=== PATIENT | female | born 2000 | race Caucasian/White ===

== ENCOUNTER → 2022-03-30 | Outpatient (CLI) | payer OTHER, SELFPAY ==
[2022-04-01 21:07] LABS: Chlamydia By Nucleic Acid AMP Negative (Negative)
[2022-04-03 09:32] LABS: Gonococcus By Nucleic Acid AMP Negative (Negative)
[2022-04-06 18:27] LABS: HPV Reflexed? NOT INDICATED
== END | disposition home or self-care (01) ==
LOC: LABSPEC 16:12
PROVIDERS: Referring Provider Nurse Practitioner Women's Health; Visit Provider Nurse Practitioner Women's Health
DX: N94.6 Dysmenorrhea, unspecified (principal); Z12.4 Encounter for screening for malignant neoplasm of cervix
CPT/HCPCS: 87491; 87591; 88175; G0145

== ENCOUNTER → 2022-11-30 | Outpatient (CLI) | payer OTHER, SELFPAY ==
[2022-12-02 06:08] LABS: Chlamydia By Nucleic Acid AMP Negative (Negative); Gonococcus By Nucleic Acid AMP Negative (Negative)
== END | disposition home or self-care (01) ==
LOC: LABSPEC 11:37
PROVIDERS: Referring Provider Obstetrics & Gynecology; Visit Provider Obstetrics & Gynecology
DX: Z34.90 Encounter for supervision of normal pregnancy, unspecified, unspecified trimester (principal)
CPT/HCPCS: 87086; 87088; 87491; 87591

== ENCOUNTER → 2022-12-14 | Outpatient (CLI) | payer OTHER, SELFPAY ==
[2022-12-14 13:03] LABS: Absolute Lymphocyte Count 2.36 X10^3/uL (0.83-4.51); Absolute Neutrophil Count 6.3 X10^3/uL (2.0-7.7); Basophil# 0.05 X10^3/uL; Basophil% 0.5 % (0-1); Eosinophil# 0.07 X10^3/uL; Eosinophils% 0.7 % (0-5); Hematocrit 38.2 % (37-47); Hemoglobin 13.2 g/dL (12.0-15.0); Lymphocyte # 2.36 X10^3/ul (0.83-4.51); Lymphocyte % 24.8 % (19-41); Mean Corp Hgb Conc 34.6 g/dL (32-36); Mean Corpuscular Hgb 28.8 pg (27.0-32.0); Mean Corpuscular Volume 83.4 fL (81-99); Mean Platelet Vol. 9.2 fl (6.2-12.0); Monocyte# 0.67 X10^3/uL; NRBC Flagged by Analyzer 0 % (0-5); Neutrophil # 6.34 X10^3/uL (2.7-7.7); Neutrophil % 66.6 % (47-70); Platelet Count 315 K/mm3 (150-450); RBC Distribution Width CV 12.1 % (11.6-14.6); Red Blood Count 4.58 M/mm3 (4.2-5.4); White Blood Count 9.5 K/mm3 (4.4-11.0)
[2022-12-14 13:33] LABS: NATERA MAILED SPECIMEN
[2022-12-14 14:32] LABS: HIV - WCH Non-Reactive (Nonreactive); Hepatitis B Surface Antigen Non-Reactive (Nonreactive); Hepatitis C Antibody Non-Reactive (Nonreactive); Rubella IgG Reactive (Nonreactive); Syphilis Antibodies Non-reactive
== END | disposition home or self-care (01) ==
LOC: LAB 12:27
PROVIDERS: Referring Provider Obstetrics & Gynecology; Visit Provider Obstetrics & Gynecology
DX: Z34.81 Encounter for supervision of other normal pregnancy, first trimester (principal); Z31.430 Encounter of female for testing for genetic disease carrier status for procreative management
CPT/HCPCS: 36415; 85025; 86703; 86762; 86780; 86803; 86850; 86900; 86901; 87340

== ENCOUNTER → 2023-04-06 | Outpatient (CLI) | payer OTHER, SELFPAY ==
[2023-04-06 09:14] LABS: Absolute Lymphocyte Count 1.92 X10^3/uL (0.83-4.51); Absolute Neutrophil Count 7.2 X10^3/uL (2.0-7.7); Basophil# 0.04 X10^3/uL; Basophil% 0.4 % (0-1); Eosinophil# 0.12 X10^3/uL; Eosinophils% 1.2 % (0-5); Hematocrit 33.5 % (37-47); Hemoglobin 10.9 g/dL (12.0-15.0); Lymphocyte # 1.92 X10^3/ul (0.83-4.51); Lymphocyte % 19.1 % (19-41); Mean Corp Hgb Conc 32.5 g/dL (32-36); Mean Corpuscular Hgb 29.3 pg (27.0-32.0); Mean Corpuscular Volume 90.1 fL (81-99); Mean Platelet Vol. 9.7 fl (6.2-12.0); Monocyte# 0.67 X10^3/uL; Monocyte% 6.7 % (0-10); NRBC Flagged by Analyzer 0 % (0-5); Neutrophil # 7.18 X10^3/uL (2.7-7.7); Neutrophil % 71.6 % (47-70); Platelet Count 259 K/mm3 (150-450); RBC Distribution Width CV 12.4 % (11.6-14.6); RBC Distribution Width SD 40.7 fl (35.1-43.9); Red Blood Count 3.72 M/mm3 (4.2-5.4)
[2023-04-06 09:23] LABS: Glucose Challenge Gest 1H 50g 126 mg/dL (70-140)
[2023-04-06 09:57] LABS: HIV - WCH Non-Reactive (Nonreactive); Syphilis Antibodies Non-reactive
== END | disposition home or self-care (01) ==
PROVIDERS: Referring Provider Nurse Practitioner Women's Health; Visit Provider Nurse Practitioner Women's Health
DX: Z34.90 Encounter for supervision of normal pregnancy, unspecified, unspecified trimester (principal)
CPT/HCPCS: 36415; 82950; 85025; 86703; 86780

== ENCOUNTER → 2023-05-02 | Outpatient (CLI) | payer OTHER, SELFPAY ==
[2023-05-02 13:06] LABS: Absolute Lymphocyte Count 2.21 X10^3/uL (0.83-4.51); Absolute Neutrophil Count 9.2 X10^3/uL (2.0-7.7); Basophil# 0.04 X10^3/uL; Basophil% 0.3 % (0-1); Eosinophil# 0.06 X10^3/uL; Eosinophils% 0.5 % (0-5); Hematocrit 34.8 % (37-47); Hemoglobin 11.5 g/dL (12.0-15.0); Lymphocyte # 2.21 X10^3/ul (0.83-4.51); Mean Corpuscular Hgb 29.5 pg (27.0-32.0); Mean Corpuscular Volume 89.2 fL (81-99); Mean Platelet Vol. 10.1 fl (6.2-12.0); Monocyte% 5.7 % (0-10); NRBC Flagged by Analyzer 0 % (0-5); Neutrophil # 9.16 X10^3/uL (2.7-7.7); Neutrophil % 74.4 % (47-70); Platelet Count 241 K/mm3 (150-450); RBC Distribution Width CV 12.5 % (11.6-14.6); RBC Distribution Width SD 40.3 fl (35.1-43.9); White Blood Count 12.3 K/mm3 (4.4-11.0)
== END | disposition home or self-care (01) ==
LOC: LAB 12:30
PROVIDERS: Referring Provider Nurse Practitioner Women's Health; Visit Provider Nurse Practitioner Women's Health
DX: O99.012 Anemia complicating pregnancy, second trimester (principal); Z3A.00 Weeks of gestation of pregnancy not specified
CPT/HCPCS: 36415; 85025

== ENCOUNTER → 2023-06-08 | Outpatient (CLI) | payer OTHER, SELFPAY ==
--- OUTSIDE RECORDS SUMMARY | 2023-06-08 15:47 | XMS RPT_ITS | CCD ---
Author Name Unknown Address [address] [place] [address] Organization [facility] Care Team Providers Care Checking Department Supervisor Name Role Phone NO PRIMARY CARE, Primary Care Unavailable SAMANTHA PAULINO Attending Unavailable DENICE QUICK Referring Unavailcésar quijano NO PRIMARY CAREMD Primary Care Unavailable SAMANTHA PAULINO Attending Unavailable MATT BOONE Referring Unavailab le Encounters Encounter Date Encounter Type Care Provider Facility Start: 02-23-2023 End: 02-23-2023 ambulatory NO PRIMARY CARE [facility] Start: 02-07-2023 End: 02-07-2023 ambulatory NO PRIMARY CARE [facility] Payers Date Payer Category Payer Unknown [id number] [id number]. [id number] 1998 Unknown [id number] [id number]. [id number] Private Health Insurance [id number] Summary Purpose Family History No Family History Records Found Advance Directives No Advanced Directives Records Found Additional Source Comments INFORMATION SOURCE (unrecogn ized section and content) FOR RECORDS PERTAINING TO PATIENTS WHO ARE OR HAVE BEEN ENROLLED IN A CHEMICAL DEPENDENCY/SUBSTANCEABUSE PROGRAM, SOME INFORMATION MAY BE OMITTED. This clinical summary was aggregated from multiple sources. Caution should be exercised in using it in the provision of clinical care. This summary normalizes information from multiple sources, and as a consequence, information in this document may materially change the coding, format and clinical context of patient data. In addition, data may be omitted in some cases. CLINICAL DECISIONS SHOULD BE BASED ON THE PRIMARY CLINICAL RECORDS. [email or web address] provides no warranty or guarantee of the accuracy or completeness of information in this document.
== END | disposition home or self-care (01) ==
LOC: LABSPEC 15:32
PROVIDERS: Referring Provider Obstetrics & Gynecology; Visit Provider Obstetrics & Gynecology
DX: Z34.90 Encounter for supervision of normal pregnancy, unspecified, unspecified trimester (principal)
CPT/HCPCS: 87081

== ENCOUNTER 2023-06-28 12:00 | Outpatient (CLI) | payer OTHER, SELFPAY ==
[2023-06-28 12:20] VITALS: BP 114/74; PULSE 109; TEMP 37.3; O2SAT 98
[2023-06-28 12:21] VITALS: TEMP 37.3; O2SAT 99
--- OUTSIDE RECORDS SUMMARY | 2023-06-28 12:23 | XMS RPT_ITS | CCD ---
Author Name Unknown Address [address] [place] [address] Organization [facility] Care Team Providers Care Transportation Director Name Role Phone NO PRIMARY CARE, Primary Care Unavailable SAMANTHA PAULINO Attending Unavailable DENICE QUICK Referring Unavailcésar quijano NO PRIMARY CAREMD Primary Care Unavailable SAMANTHA PAULINO Attending Unavailable MATT BOONE Referring Unavailab le Encounters Encounter Date Encounter Type Care Provider Facility Start: 02-23-2023 End: 02-23-2023 ambulatory NO PRIMARY CARE [facility] Start: 02-07-2023 End: 02-07-2023 ambulatory NO PRIMARY CARE [facility] Payers Date Payer Category Payer Unknown [id number] [id number]. [id number] 1998 Unknown [id number] [id number]. [id number] Private Health Insurance [id number] Summary Purpose Family History No Family History [...] BE BASED ON THE PRIMARY CLINICAL RECORDS. [employer] provides no warranty or guarantee of the accuracy or completeness of information in this document.
[2023-06-28 12:50] LABS: ROM Internal Control Test YES-OK TO RESULT pt. (Internal QC); ROM Patient Test Negative (Negative)
[2023-06-28 13:28] VITALS: BMI 29.2
--- NOTE | 2023-06-28 18:29 | OB.TRI.HP_ITS ---
HPI - General General Date of Admission: 06/28/23 HPI Narrative ALBERTO WANG, is a 22 y/o @ 39 weeks 3 days who presents to L&D to rule out rupture of membranes. Maternal Data Information DAMIEN Calculator Estimated Delivery Date Method Current WG Current Estimate 07/03/23 LMP (Certain) 40w 2d Other Estimates 06/29/23 Ultrasound #1 40w 6d PFSH PFSH Medical History Genetic testing of female Home Medications docosahexaenoic acid 200 mg capsule ( DHA) mg PO 11/30/22 [History Last Taken Unknown] Allergy/AdvReac Type Severity Reaction Status Date / Time No Known Allergies Allergy Verified 07/05/23 10:57 Family History Sister Thyroid disorder Social History number of children: 0 current occupational status: employed current occupation: [employer] leisure activities: reading and volunteer work Smoking Status: Never smoker alcohol intake: current alcohol intake frequency: holidays/special occasions only substance use type: does not use what type of physical activity do you participate in: other details: At home workouts frequency: 3-4 times per week seatbelt use: always do you feel safe at home: Yes additional social history: - Debby landis History 1 Elective abortions Hx Para Spontaneous abortions Hx # Term Pregnancies Ectopic pregnancies Hx # Pregnancies Multiple births # of living children Visit Details Expected Delivery Route/Plan Labor Preferences- CB/BF classes: completed labor support person: Ari labor intervention preferences: hydrotherapy pain management options preferred: unmedicated, open to epidural if needed medically cut cord/dad catch: cord : wants PP control planned: discussed discussed possible routes of delivery and associated risks: discussed possible delivery modalities and possible indications for each including R/B/A of , VAVD, and CS. questions answered. special requests: none Plans Covid status: unvaxed Flu vaccine: declines Tdap vaccine: given Rhogam: NA LARC form signed: yes movement and labor precautions reviewed. Problem list reviewed and updated with the most current plan of care details and appropriate orders placed. Relevant counseling for the gestational age provided. Continue routine care and follow up unless otherwise noted in visit notes/problem list details OB Flowsheet Initial Weight: Not Recorded Date -?-?-?-?-?-?-?-?-?-?-?-?- EGA Weight BP Urine Prot -?-?-?-?-?-?-?-?-?-?-?-?- Glucose FHR FuHt Pres Dilation -?-?-?-?-?-?-?-?-?-?-?-?- Effaced St Visit Note 11/30/22 -?-?-?-?-?-?-?-?-?-?-?-?- 9w 2d 153 lb 2 oz 124/79 -?-?-?-?-?-?-?-?-?-?-?-?- 189 -?-?-?-?-?-?-?-?-?-?-?-?- JV- CRL consiste nt with lmp. undecided about nipt and did not do a new ob. 12/27/22 -?-?-?-?-?-?-?-?-?-?-?-?- 13w 1d 151 lb 4 oz 109/79 -?-?-?-?-?-?-?-?-?-?-?-?- 155 -?-?-?-?-?-?-?-?-?-?-?-?- KW-no vb/petey g. Discussed AFP, and carrier screening. US ordered. 01/24/23 -?-?-?-?-?-?-?-?-?-?-?-?- 17w 1d 154 lb 2 oz 126/77 Nega tive -?-?-?-?-?-?-?-?-?-?-?-?- Negative 150 -?-?-?-?-?-?-?-?-?-?-?-?- KW- no vb/crampi ng. CBE classes discussed. US on 02/07. 02/20/23 -?-?-?-?-?-?-?-?-?-?-?-?- 21w 0d 156 lb 8 oz 105/67 Nega tive -?-?-?-?-?-?-?-?-?-?-?-?- Negative 150 21 -?-?-?-?-?-?-?-?-?-?-?-?- KW-no vb/crampin g. good fm. KW-no vb/cramping. good fm. Has US for additional anatomy views on thurs. no concerns 03/23/23 -?-?-?-?-?-?-?-?-?-?-?-?- 25w 3d 162 lb 4 oz 110/70 Nega tive -?-?-?-?-?-?-?-?-?-?-?-?- Negative 145 25 -?-?-?-?-?-?-?-?-?-?-?-?- MH-NO VB, LOF. G ood FM. Declines flu vax. Larc done. 04/06/23 -?-?-?-?-?-?-?-?-?-?-?-?- 27w 3d 168 lb 2 oz 107/71 -?-?-?-?-?-?-?-?-?-?-?-?- 141 27 -?-?-?-?-?-?-?-?-?-?-?-?- MH-No VB, LOF. G ood FM. 28 wk labs:normal glucose. Anemia and will add FE 04/21/23 -?-?-?-?-?-?-?-?-?-?-?-?- 29w 4d 169 lb 99/63 Negative -?-?-?-?-?-?-?-?-?-?-?-?- Negative 150 29 -?-?-?-?-?-?-?-?-?-?-?-?- KW- no vb/lof/ct x. CBC ordered for next visit. Tdap today. 05/02/23 -?-?-?-?-?-?-?-?-?-?-?-?- 31w 1d 170 lb 2 oz 110/72 Nega tive -?-?-?-?-?-?-?-?-?-?-?-?- Negative 130 31 -?-?-?-?-?-?-?-?-?-?-?-?- KW-no vb/lof/ctx . good fm. CB class last sat. CBC today. continue on iron. 05/19/23 -?-?-?-?-?-?-?--?-?-?-?-?- 33w 4d 171 lb 4 oz 102/68 Nega tive -?-?-?-?-?-?-?-?-?-?-?-?- Negative 130 33 -?-?-?-?-?-?-?-?-?-?-?-?- KW- no vb/lof/ct x. good fm. no concerns today. 06/01/23 -?-?-?-?-?-?-?-?-?-?-?-?- 35w 3d 175 lb 4 oz 109/70 Nega tive -?-?-?-?-?-?-?-?-?-?-?-?- Negative 135 35 -?-?-?-?-?-?-?-?-?-?-?-?- JV- no lof, vagi nal bleeding, or dec fm. 06/08/23 -?-?-?-?-?-?-?-?-?-?-?-?- 36w 3d 178 lb 6 oz 98/69 Nega tive -?-?-?-?-?-?-?-?-?--?-?-?- Negative 135 36 Cephalic 0 -?-?-?-?-?-?-?-?-?-?-?-?- SM- no vb lof go od fm no regular ctx gbs collected, discussed delivery preferences 06/16/23 -?-?-?-?-?-?-?-?-?-?-?-?- 37w 4d 182 lb 98/70 Negative -?-?-?-?-?-?-?-?-?-?-?-?- Negative 138 37 Cephalic -?-?-?-?-?-?-?-?-?-?-?-?- LC- no vb/ctx/lo f. good fm. no concerns.gbs neg. declines VE today. 06/22/23 -?-?-?-?-?-?-?-?-?-?-?-?- 38w 3d 184 lb 2 oz 122/79 -?-?-?-?-?-?-?-?-?-?-?-?- 125 39 Cephalic 1 -?-?-?-?-?-?-?-?-?-?-?-?- SM- no vb lof go od fm no regular ctx 06/30/23 -?-?-?-?-?-?-?-?-?-?-?-?- 39w 4d 184 lb 4 oz 128/88 Nega tive -?-?-?-?-?-?-?-?-?-?-?-?- Negative 129 39 Cephalic -?-?-?-?-?-?-?-?-?-?-?-?- JV- no further l of, vaginal bleeding, or dec fm,. plan for 41 week IOL. (monday the at 7am) plan for mendez + pit 07/05/23 -?-?-?-?-?-?-?-?-?-?-?-?- 40w 2d 184 lb 114/75 Negative -?-?-?-?-?-?-?-?-?-?-?-?- Negative 137 39 Cephalic 1 .5 -?-?-?-?-?-?-?-?-?-?-?-?- 40 -3 LC- no vb/ lof/ctx. good fm. has IOL set up. membranes swept today. ROS Constitutional Constitutional: Reports systems reviewed and no addt'l complaints, except as documented Gastrointestinal Gastrointestinal: Denies bloating, constipation, cramping, diarrhea, nausea or vomiting Genitourinary Genitourinary: Reports other Details: Denies vaginal odor, vaginal bleeding, or vaginal discharge ; Denies difficulty urinating or flank pain Physical Exam HEENT normocephalic Resp normal respiratory effort and normal air movement no CVA tenderness Extremity normal to inspection General Extremity: edema bilateral (trace ) NST FHR Rate Baby A Baseline: 120 Variability:: Moderate Accelerations:: 15 x 15 Decelerations:: None NST Reactive:: Yes FHR Category:: Category I Uterine Activity:: no contractions Assessment & Plan (1) Anemia in preg-unspec: QUALIFIERS: Trimester: second trimester Qualified Code(s): O99.012 - Anemia complicating , second trimester COMMENT: add FE: improved (2) Genetic testing of female: 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 keep next scheduled appt. Charges/Coding Multi Select Codes Visit Charges Office Visit/Consults: 24005 OV L3 Est 20min Urinary/Genital Urinary/Genital CPT Codes: 24253-22 non-stress test Interp
--- NOTE | 2023-06-28 18:29 | OB.TRI.NOTE ---
HPI - General General Date of Admission: 06/28/23 HPI Narrative ALBERTO WANG, is a 22 y/o @ 39 weeks 3 days who presents to L&D to rule out rupture of membranes. Maternal Data Information DAMIEN Calculator Estimated Delivery Date Method Current WG Current Estimate 07/03/23 LMP (Certain) 40w 2d Other Estimates 06/29/23 Ultrasound #1 40w 6d PFSH PFSH Medical History Genetic testing of female Home Medications docosahexaenoic acid 200 mg capsule ( DHA) mg PO 11/30/22 [History Last Taken Unknown] Allergy/AdvReac Type Severity Reaction Status Date / Time No Known Allergies Allergy Verified 07/05/23 10:57 Family History Sister Thyroid disorder Social History number of children: 0 current occupational status: employed current occupation: [employer] leisure activities: reading and volunteer work Smoking Status: Never smoker alcohol intake: current alcohol intake frequency: holidays/special occasions only substance use type: does not use what type of physical activity do you participate in: other details: At home workouts frequency: 3-4 times per week seatbelt use: always do you feel safe at home: Yes additional social history: - Debby landis History 1 Elective abortions Hx Para Spontaneous abortions Hx # Term Pregnancies Ectopic pregnancies Hx # Pregnancies Multiple births # of living children Visit Details Expected Delivery Route/Plan Labor Preferences- CB/BF classes: completed labor support person: Ari labor intervention preferences: hydrotherapy pain management options preferred: unmedicated, open to epidural if needed medically cut cord/dad catch: cord : wants PP control planned: discussed discussed possible routes of delivery and associated risks: discussed possible delivery modalities and possible indications for each including R/B/A of , VAVD, and CS. questions answered. special requests: none Plans Covid status: unvaxed Flu vaccine: declines Tdap vaccine: given Rhogam: NA LARC form signed: yes movement and labor precautions reviewed. Problem list reviewed and updated with the most current plan of care details and appropriate orders placed. Relevant counseling for the gestational age provided. Continue routine care and follow up unless otherwise noted in visit notes/problem list details OB Flowsheet Initial Weight: Not Recorded Date <del>?</del> EGA Weight BP Urine Prot <del>?</del> Glucose FHR FuHt Pres Dilation <del>?</del> Effaced St Visit Note 11/30/22 <del>?</del> 9w 2d 153 lb 2 oz 124/79 <del>?</del> 189 <del>?</del> JV- CRL consistent with lmp. undecided about nipt and did not do a new ob. 12/27/22 <del>?</del> 13w 1d 151 lb 4 oz 109/79 <del>?</del> 155 <del>?</del> KW-no vb/cramping. Discussed AFP, and carrier screening. US ordered. 01/24/23 <del>?</del> 17w 1d 154 lb 2 oz 126/77 Negative <del>?</del> Negative 150 <del>?</del> KW- no vb/cramping. CBE classes discussed. US on 02/07. 02/20/23 <del>?</del> 21w 0d 156 lb 8 oz 105/67 Negative <del>?</del> Negative 150 21 <del>?</del> KW-no vb/cramping. good fm. KW-no vb/cramping. good fm. Has US for additional anatomy views on thurs. no concerns 03/23/23 <del>?</del> 25w 3d 162 lb 4 oz 110/70 Negative <del>?</del> Negative 145 25 <del>?</del> MH-NO VB, LOF. Good FM. Declines flu vax. Larc done. 04/06/23 <del>?</del> 27w 3d 168 lb 2 oz 107/71 <del>?</del> 141 27 <del>?</del> MH-No VB, LOF. Good FM. 28 wk labs:normal glucose. Anemia and will add FE 04/21/23 <del>?</del> 29w 4d 169 lb 99/63 Negative <del>?</del> Negative 150 29 <del>?</del> KW- no vb/lof/ctx. CBC ordered for next visit. Tdap today. 05/02/23 <del>?</del> 31w 1d 170 lb 2 oz 110/72 Negative <del>?</del> Negative 130 31 <del>?</del> KW-no vb/lof/ctx. good fm. CB class last sat. CBC today. continue on iron. 05/19/23 <del>?</del> 33w 4d 171 lb 4 oz 102/68 Negative <del>?</del> Negative 130 33 <del>?</del> KW- no vb/lof/ctx. good fm. no concerns today. 06/01/23 <del>?</del> 35w 3d 175 lb 4 oz 109/70 Negative <del>?</del> Negative 135 35 <del>?</del> JV- no lof, vaginal bleeding, or dec fm. 06/08/23 <del>?</del> 36w 3d 178 lb 6 oz 98/69 Negative <del>?</del> Negative 135 36 Cephalic 0 <del>?</del> SM- no vb lof good fm no regular ctx gbs collected, discussed delivery preferences 06/16/23 <del>?</del> 37w 4d 182 lb 98/70 Negative <del>?</del> Negative 138 37 Cephalic <del>?</del> LC- no vb/ctx/lof. good fm. no concerns.gbs neg. declines VE today. 06/22/23 <del>?</del> 38w 3d 184 lb 2 oz 122/79 <del>?</del> 125 39 Cephalic 1 <del>?</del> SM- no vb lof good fm no regular ctx 06/30/23 <del>?</del> 39w 4d 184 lb 4 oz 128/88 Negative <del>?</del> Negative 129 39 Cephalic <del>?</del> JV- no further lof, vaginal bleeding, or dec fm,. plan for 41 week IOL. (monday the at 7am) plan for mendez + pit 07/05/23 <del>?</del> 40w 2d 184 lb 114/75 Negative <del>?</del> Negative 137 39 Cephalic 1.5 <del>?</del> 40 -3 LC- no vb/lof/ctx. good fm. has IOL set up. membranes swept today. ROS Constitutional Constitutional: Reports systems reviewed and no addt'l complaints, except as documented Gastrointestinal Gastrointestinal: Denies bloating, constipation, cramping, diarrhea, nausea or vomiting Genitourinary Genitourinary: Reports other Details: Denies vaginal odor, vaginal bleeding, or vaginal discharge ; Denies difficulty urinating or flank pain Physical Exam HEENT normocephalic Resp normal respiratory effort and normal air movement no CVA tenderness Extremity normal to inspection General Extremity: edema bilateral (trace ) NST FHR Rate Baby A Baseline: 120 Variability:: Moderate Accelerations:: 15 x 15 Decelerations:: None NST Reactive:: Yes FHR Category:: Category I Uterine Activity:: no contractions Assessment & Plan (1) Anemia in preg-unspec: QUALIFIERS: Trimester: second trimester Qualified Code(s): O99.012 - Anemia complicating , second trimester COMMENT: add FE: improved (2) Genetic testing of female: 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 keep next scheduled appt. Charges/Coding Multi Select Codes Visit Charges Office Visit/Consults: 07627 OV L3 Est 20min Urinary/Genital Urinary/Genital CPT Codes: 72803-77 non-stress test Interp
== END 2023-06-28 14:35 | disposition home or self-care (01) ==
LOC: WPOUT 12:06 → WP 12:07
PROVIDERS: Referring Provider Obstetrics & Gynecology; Visit Provider Obstetrics & Gynecology
DX: O47.1 False labor at or after 37 completed weeks of gestation (principal); Z3A.39 39 weeks gestation of pregnancy; O99.013 Anemia complicating pregnancy, third trimester
CPT/HCPCS: 59025; 59050; 84112; 99221; G0378

== ENCOUNTER 2023-07-08 13:55 | Inpatient (IN) | payer OTHER, SELFPAY ==
[2023-07-08] VITALS (7 sets, daily range): BP systolic 116–119; BP diastolic 73–84; PULSE 79–115; TEMP 36.2–37.4; O2SAT 92–99; BMI 29.9
--- OUTSIDE RECORDS SUMMARY | 2023-07-08 13:17 | XMS RPT_ITS | CCD ---
Author Name Unknown Address [address] [place] [address] Organization [facility] Care Team Providers Care Blanket Inspector Name Role Phone NO PRIMARY CARE, Primary Care Unavailable SAMANTHA PAULINO Attending Unavailable DENICE QUICK Referring Unavailcésar quijano NO PRIMARY CAREMD Primary Care Unavailable SAMANTHA PAULINO Attending Unavailable MATT BOONE Referring Unavailab le Encounters Encounter Date Encounter Type Care Provider Facility Start: 02-23-2023 End: 02-23-2023 ambulatory NO PRIMARY CARE [facility] Start: 02-07-2023 End: 02-07-2023 ambulatory NO PRIMARY CARE [facility] Payers Date Payer Category Payer Unknown [id number] 2.16. [id number] 1998 Unknown [id number] 2.16. [id number] Private Health Insurance [id number] Summary Purpose Family History No Family History [...] BE BASED ON THE PRIMARY CLINICAL RECORDS. [employer] provides no warranty or guarantee of the accuracy or completeness of information in this document.
--- OUTSIDE RECORDS SUMMARY | 2023-07-08 13:34 | XMS RPT_ITS | CCD ---
Author Name Unknown Address [address] [place] [address] Organization [facility] Care Team Providers Care Bread Racker Name Role Phone NO PRIMARY CARE, Primary Care Unavailable SAMANTHA PAULINO Attending Unavailable DENICE QUICK Referring Unavailcésar quijano NO PRIMARY CAREMD Primary Care Unavailable SAMANTHA PAULINO Attending Unavailable MATT BOONE Referring Unavailab le Encounters Encounter Date Encounter Type Care Provider Facility Start: 02-23-2023 End: 02-23-2023 ambulatory NO PRIMARY CARE [facility] Start: 02-07-2023 End: 02-07-2023 ambulatory NO PRIMARY CARE [facility] Payers Date Payer Category Payer Unknown [id number] 2.16. [id number] 1998 Unknown [id number] [id number]. [id number] Private Health Insurance [id number] Summary Purpose Family History No Family History [...] BE BASED ON THE PRIMARY CLINICAL RECORDS. [employer] provides no warranty or guarantee of the accuracy or completeness of information in this document.
[2023-07-08 13:49] LABS: ROM Internal Control Test YES-OK TO RESULT pt. (Internal QC); ROM Patient Test POSITIVE (Negative)
--- OUTSIDE RECORDS SUMMARY | 2023-07-08 13:59 | XMS RPT_ITS | CCD ---
Author Name Unknown Address [address] [place] [address] Organization [facility] Care Team Providers Care Security System Administrator Name Role Phone NO PRIMARY CARE, Primary Care Unavailable SAMANTHA PAULINO Attending Unavailable DENICE QUICK Referring Unavailcésar quijano NO PRIMARY CAREMD Primary Care Unavailable SAMANTHA PAULINO Attending Unavailable MATT BOONE Referring Unavailab le Encounters Encounter Date Encounter Type Care Provider Facility Start: 02-23-2023 End: 02-23-2023 ambulatory NO PRIMARY CARE [facility] Start: 02-07-2023 End: 02-07-2023 ambulatory NO PRIMARY CARE [facility] Payers Date Payer Category Payer Unknown [id number] [id number]. [id number] 1998 Unknown [id number] [id number]. [id number] Private Health Insurance [id number] Summary Purpose Family History No Family History [...] BE BASED ON THE PRIMARY CLINICAL RECORDS. [employer] provides no warranty or guarantee of the accuracy or completeness of information in this document.
[2023-07-08 14:35] LABS: Absolute Lymphocyte Count 1.91 X10^3/uL (0.83-4.51); Absolute Neutrophil Count 8.7 X10^3/uL (2.0-7.7); Basophil# 0.03 X10^3/uL; Basophil% 0.3 % (0-1); Eosinophil# 0.07 X10^3/uL; Eosinophils% 0.6 % (0-5); Hemoglobin 12.8 g/dL (12.0-15.0); Lymphocyte # 1.91 X10^3/ul (0.83-4.51); Lymphocyte % 16.5 % (19-41); Mean Corp Hgb Conc 34.6 g/dL (32-36); Mean Corpuscular Hgb 29.6 pg (27.0-32.0); Mean Corpuscular Volume 85.6 fL (81-99); Mean Platelet Vol. 10.7 fl (6.2-12.0); Monocyte# 0.78 X10^3/uL; Monocyte% 6.7 % (0-10); NRBC Flagged by Analyzer 0 % (0-5); Neutrophil # 8.68 X10^3/uL (2.7-7.7); Neutrophil % 74.9 % (47-70); Platelet Count 229 K/mm3 (150-450); RBC Distribution Width CV 12.7 % (11.6-14.6); RBC Distribution Width SD 39.8 fl (35.1-43.9); Red Blood Count 4.32 M/mm3 (4.2-5.4); White Blood Count 11.6 K/mm3 (4.4-11.0)
[2023-07-08 15:23] LABS: Syphilis Antibodies Non-reactive
[2023-07-08] MEDS: miSOPROStol 25 MCG TABLET PO (15:50)
--- NOTE | 2023-07-08 19:11 | HP.PCM.OB_ITS ---
HPI - General General Date of Admission: 07/08/23 Date of Service: 07/08/23 Chief Complaint: leaking of fluid HPI Narrative ALBERTO WANG, is a 22 F who [id number] at 40+5 with leaking of fluid since noon. no vb/ctx, good fm. uncomplicated course, GBs negative. Maternal Data Information DAMIEN Calculator Estimated Delivery Date Method Current WG Current Estimate 07/03/23 LMP (Certain) 40w 5d Other Estimates 06/29/23 Ultrasound #1 41w 2d PFSH PFSH Medical History (Updated 07/08/23 @ 19:15 by Jie Viramontes CNM) Anemia affecting Genetic testing of female Home Medications docosahexaenoic acid 200 mg capsule ( DHA) See Rx Instructions PO .COMPLEX 11/30/22 [History Last Taken 07/08/23 08:00 1 tab] Allergy/AdvReac Type Severity Reaction Status Date / Time No Known Allergies Allergy Verified 07/08/23 13:28 Family History Sister Thyroid disorder Social History number of children: 0 current occupational status: employed current occupation: [employer] leisure activities: reading and volunteer work Smoking Status: Never smoker alcohol intake: current alcohol intake frequency: holidays/special occasions only substance use type: does not use what type of physical activity do you participate in: other details: At home workouts frequency: 3-4 times per week seatbelt use: always do you feel safe at home: Yes additional social history: - Debby landis History 1 Elective abortions Hx Para 0 Spontaneous abortions Hx # Term Pregnancies Ectopic pregnancies Hx # Pregnancies Multiple births # of living children Visit Details Expected Delivery Route/Plan Labor Preferences- CB/BF classes: completed labor support person: Ari labor intervention preferences: hydrotherapy pain management options preferred: unmedicated, open to epidural if needed medically cut cord/dad catch: cord : wants PP control planned: discussed discussed possible routes of delivery and associated risks: discussed possible delivery modalities and possible indications for each including R/B/A of , VAVD, and CS. questions answered. special requests: none Plans Covid status: unvaxed Flu vaccine: declines Tdap vaccine: given Rhogam: NA LARC form signed: yes movement and labor precautions reviewed. Problem list reviewed and updated with the most current plan of care details and appropriate orders placed. Relevant counseling for the gestational age provided. Continue routine care and follow up unless otherwise noted in visit notes/problem list details OB Flowsheet Initial Weight: Not Recorded Date -?-?-?-?-?-?-?-?-?-?-?-?- EGA Weight BP Urine Prot -?-?-?-?-?-?-?-?-?-?-?-?- Glucose FHR FuHt Pres Dilation -?-?-?-?-?-?-?-?-?-?-?-?- Effaced St Visit Note 11/30/22 -?-?-?-?-?-?-?-?--?-?-?-?- 9w 2d 153 lb 2 oz 124/79 -?-?-?-?-?-?-?-?-?-?-?-?- 189 -?-?-?-?-?-?-?-?-?-?-?-?- JV- CRL consiste nt with lmp. undecided about nipt and did not do a new ob. 12/27/22 -?-?-?-?-?-?-?-?-?-?-?-?- 13w 1d 151 lb 4 oz 109/79 -?-?-?-?-?-?-?-?-?-?-?-?- 155 -?-?-?-?-?-?-?-?-?-?--?-?- KW-no vb/petey martinez Discussed AFP, and carrier screening. US ordered. 01/24/23 -?-?-?-?-?-?-?-?-?-?-?-?- 17w 1d 154 lb 2 oz 126/77 Nega tive -?-?-?-?-?-?-?-?-?-?-?-?- Negative 150 -?-?-?-?-?-?-?-?-?-?-?-?- KW- no vb/crampi ng. CBE classes discussed. US on 02/07. 02/20/23 -?-?-?-?-?-?-?-?-?-?-?--?- 21w 0d 156 lb 8 oz 105/67 Nega tive -?-?-?-?-?-?-?-?-?-?-?-?- Negative 150 21 -?-?-?-?-?-?-?-?-?-?-?-?- KW-no vb/crampin g. good fm. KW-no vb/cramping. good fm. Has US for additional anatomy views on thurs. no concerns 03/23/23 -?-?-?-?-?-?-?-?-?-?-?-?- 25w 3d 162 lb 4 oz 110/70 Nega tive -?-?-?-?-?-?-?-?-?-?-?-?- Negative 145 25 -?-?-?-?-?-?-?-?-?-?-?-?- MH-NO VB, LOF. G ood FM. Declines flu vax. Larc done. 04/06/23 -?-?-?-?-?-?-?-?-?-?-?-?- 27w 3d 168 lb 2 oz 107/71 -?-?-?-?-?-?-?-?-?-?-?-?- 141 27 -?-?-?-?-?-?-?-?-?-?-?-?- MH-No VB, LOF. G ood FM. 28 wk labs:normal glucose. Anemia and will add FE 04/21/23 -?-?-?-?-?-?-?-?-?-?-?-?- 29w 4d 169 lb 99/63 Negative -?-?-?-?-?-?-?-?-?-?-?-?- Negative 150 29 -?-?-?-?-?-?-?-?-?-?-?-?- KW- no vb/lof/ct x. CBC ordered for next visit. Tdap today. 05/02/23 -?-?-?-?-?-?-?-?-?-?-?-?- 31w 1d 170 lb 2 oz 110/72 Nega tive -?-?-?-?-?-?-?-?-?-?-?-?- Negative 130 31 -?-?-?-?-?-?-?-?-?-?-?-?- KW-no vb/lof/ctx . good fm. CB class last sat. CBC today. continue on iron. 05/19/23 -?-?-?-?-?-?-?-?-?-?-?-?- 33w 4d 171 lb 4 oz 102/68 Nega tive -?-?-?-?-?-?-?-?-?-?-?-?- Negative 130 33 -?-?-?-?-?-?-?-?-?-?-?-?- KW- no vb/lof/ct x. good fm. no concerns today. 06/01/23 -?-?-?-?-?-?-?-?-?-?-?-?- 35w 3d 175 lb 4 oz 109/70 Nega tive -?-?-?-?-?-?-?-?-?-?-?-?- Negative 135 35 -?-?-?-?-?-?-?-?-?-?-?-?- JV- no lof, vagi nal bleeding, or dec fm. 06/08/23 -?-?-?-?-?-?-?-?-?-?-?-?- 36w 3d 178 lb 6 oz 98/69 Nega tive -?-?-?-?-?-?-?-?-?-?-?-?- Negative 135 36 Cephalic 0 -?-?-?-?-?-?-?-?-?-?-?-?- SM- no vb lof go od fm no regular ctx gbs collected, discussed delivery pr eferences 06/16/23 -?-?-?-?-?-?-?-?-?-?-?-?- 37w 4d 182 lb 98/70 Negative -?-?-?-?-?-?-?-?-?-?-?-?- Negative 138 37 Cephalic -?-?-?-?-?-?-?-?-?--?-?-?- LC- no vb/ctx/lo f. good fm. no concerns.gbs neg. declines VE today. 06/22/23 -?-?-?-?-?-?-?-?-?-?-?-?- 38w 3d 184 lb 2 oz 122/79 -?-?-?-?-?-?--?-?-?-?-?-?- 125 39 Cephalic 1 -?-?-?-?-?-?-?-?-?-?-?-?- SM- no vb lof go od fm no regular ctx 06/30/23 -?-?-?-?-?-?-?-?-?-?-?-?- 39w 4d 184 lb 4 oz 128/88 Nega tive -?-?-?-?-?-?-?-?-?-?-?-?- Negative 129 39 Cephalic -?-?-?-?-?-?-?-?-?-?-?-?- JV- no further l of, vaginal bleeding, or dec fm,. plan for 41 week IOL. (monday the at 7am) plan for mendez + pit 07/05/23 -?-?-?-?-?-?-?-?-?-?-?-?- 40w 2d 184 lb 114/75 Negative -?-?-?-?-?-?-?-?-?-?-?-?- Negative 137 39 Cephalic 1 .5 -?-?-?-?-?-?-?-?-?-?-?-?- 40 -3 LC- no vb/ lof/ctx. good fm. has IOL set up. membranes swept today. NST FHR Rate Baby A Baseline: 125 Variability:: Moderate Accelerations:: 15 x 15 Decelerations:: None NST Reactive:: Yes FHR Category:: Category I Uterine Activity:: irreg ROS Cardiovascular Cardiovascular: Denies abdominal pain, chest pain, diaphoresis or dyspnea Respiratory/Chest Respiratory/Chest: Denies change in mental status, chest congestion, chest tightness, cough, shortness of breath at rest, shortness of breath with exertion, breast mass, breast pain, breast skin changes, breast swelling, change in breast shape or nipple discharge Genitourinary Genitourinary: Reports change in urinary stream Musculoskeletal Musculoskeletal: Reports none Integumentary Integumentary: Reports none Neurologic Neurologic: Reports none Psychiatric Psychiatric: Reports none Endocrine Endocrinology: Reports none Hematologic/Lymphatic Hematologic/Lymphatic: Reports none Allergic/Immunologic Allergic/Immunologic: Reports none Vital Signs Vital Signs Vital Signs: 07/08/23 13:35 07/08/23 13:35 07/08/23 13:35 Temperature Temperature Source Pulse Rate 98 Blood Pressure 116/81 H BP Systolic 116 BP Diastolic 81 Pulse Ox 92 07/08/23 13:35 07/08/23 13:35 07/08/23 15:52 Temperature 97.1 F L Temperature Source Temporal Pulse Rate Blood Pressure 118/84 H BP Systolic 118 BP Diastolic 84 Pulse Ox 07/08/23 15:52 07/08/23 15:52 07/08/23 15:52 Temperature Temperature Source Temporal Pulse Rate 115 H 99 Blood Pressure BP Systolic BP Diastolic Pulse Ox 07/08/23 15:52 07/08/23 15:52 07/08/23 18:18 Temperature 98.3 F Temperature Source Pulse Rate Blood Pressure 119/76 BP Systolic 119 BP Diastolic 76 Pulse Ox 96 07/08/23 18:18 07/08/23 18:17 07/08/23 18:18 Temperature Temperature Source Temporal Pulse Rate 93 79 Blood Pressure BP Systolic BP Diastolic Pulse Ox 07/08/23 18:18 07/08/23 18:17 Temperature 99.3 F H Temperature Source Pulse Rate Blood Pressure BP Systolic BP Diastolic Pulse Ox 99 Weight Weight: 185 lb 6.54 oz Body Mass Index (BMI) 29.9 Physical Exam Const alert, oriented x3 and no apparent distress General Appearance: cooperative, comfortable and well kempt Orientation / Consciousness: awake and oriented to person Exam Limitations: no limitations HEENT normocephalic Neck full ROM Chest inspection of chest normal Resp normal respiratory effort, normal air movement and no retractions Effort and Inspection: able to speak in complete sentences and symmetric chest movement Cardio regular rate Peripheral Pulses: pulses 2+ throughout GI normal to inspection, nondistended, normoactive bowel sounds Inspection: gravid no CVA tenderness and appearance of the vagina normal External Female Exam: normal appearance of the urethra; Negative for external lesion OB / External & Speculum: external exam normal Manual OB Exam: estimated gestational size appropriate and presentation cephalic Uterus Palpation: Negative for uterus tender Extremity normal to inspection Skin no rashes or lesions noted Neuro deep tendon reflexes 2+ bilaterally and gait normal Motor Exam: strength 5/5 throughout and clonus absent Psych Activity / Motor Behavior: appropriate eye contact Speech: normal speech Labs Labs Labs: Blood Type O POSITIVE Antibody Screen NEGATIVE Hct 37.0 % (37-47) Hgb 12.8 g/dL (12.0-15.0) Syphilis Total Ab Non-reactive Rubella IgG Antibody Reactive (Nonreactive) Hep Bs Antigen Non-Reactive (Nonreactive) Hepatitis C Antibody Non-Reactive (Nonreactive) Chlamydia DNA (YI) Negative (Negative) N.gonorrhoeae DNA (YI) Negative (Negative) HIV 1&2 Antibody Non-Reactive (Nonreactive) Glucose 1 Hr 50 gm 126 mg/dL (70-140) Assessment & Plan (1) Anemia in preg-unspec: QUALIFIERS: Trimester: second trimester Qualified Code(s): O99.012 - Anemia complicating , second trimester COMMENT: add FE: improved (2) : QUALIFIERS: Weeks of gestation: 40 weeks Qualified Code(s): Z3A.40 - 40 weeks gestation of COMMENT: nl anatomy NIPT low risk, declines carrier screen (3) Supervision of normal : QUALIFIERS: Normal : normal first Trimester: second trimester Qualified Code(s): Z34.02 - Encounter for supervision of normal first , second trimester COMMENT: [id number] DAMIEN 07/03/23 girl name secret : Selwyn, GBS neg (4) Genetic testing of female: COMMENT: 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 plan induction of labor with cytotec then pitocin PRN if needed. Pain management: plans epidural. GBS negative. Management of any complications: none I have reviewed the [facility] and made any clinically relevant updates. updated on exam, admission and poc. agrees with primary midwifery management for low risk patient.
[2023-07-08] MEDS: miSOPROStol 25 MCG TABLET VAGINAL (20:36)
[2023-07-08] MEDS: Lactated Ringers 1,000 ML 50 ML IV (23:39)
[2023-07-09] VITALS (32 sets, daily range): BP systolic 93–121; BP diastolic 55–79; PULSE 69–130; RESP 14–16; TEMP 36.4–37.3; O2SAT 96–100
[2023-07-09] MEDS: miSOPROStol 25 MCG TABLET VAGINAL (00:38)
[2023-07-09] MEDS: Oxytocin 15 Units/NS 250ml 15 UNITS/250 ML IV.SOLN 2 UNITS IV (05:36)
--- NOTE | 2023-07-09 08:41 | PN.OBGYN_ITS ---
Subjective Subjective coping with contractions, intensifying Objective Data Objective Data Vital Signs: Vital Signs Temp Pulse BP Pulse Ox 98.8 F 112 H 116/69 97 07/09/23 07:10 07/09/23 08:35 07/09/23 08:35 07/09/23 07:10 Weight: 185 lb 6.54 oz Body Mass Index (BMI) 29.9 Intake & Output: Intake and Output for Last 24 Hours 07/07/23 07/08/23 07/09/23 23:59 23:59 23:59 Intake Total 6.2 / 6.2 Output Total 500 / 500 Balance -493.8 / -493.8 Lab / Micro Data 07/08/23 14:15 Labs: Laboratory Results - last 24 hr 07/08/23 13:30: Vag Amniotic Fld Detect POSITIVE H 07/08/23 14:15: WBC 11.6 H, RBC 4.32, Hgb 12.8, Hct 37.0, MCV 85.6, MCH 29.6, MCHC 34.6, RDW Std Deviation 39.8, RDW Coeff of [place] 12.7, Plt Count 229, MPV 10.7, Immature Gran % (Auto) 1.000 H, Neut % (Auto) 74.9 H, Lymph % (Auto) 16.5 L, [place] % (Auto) 6.7, Eos % (Auto) 0.6, Baso % (Auto) 0.3, Absolute Neuts (auto) 8.7 H, Absolute Lymphs (auto) 1.91, Nucleated RBC % 0, Syphilis Total Ab Non- reactive, Blood Type O POSITIVE, Antibody Screen NEGATIVE Physical Exam Narrative breathing through contractions, comfortable in between. no vaginal bleeding. contractions palpating strong on 6u of pitocin NST FHR Rate Baby A Baseline: 140-150 Variability:: Moderate Accelerations:: 15 x 15 Decelerations:: Early NST Reactive:: Yes FHR Category:: Category I Uterine Activity:: q2-3 Assessment & Plan (1) Rupture of membranes with clear amniotic fluid: COMMENT: since 1200 07/08/2023, clear fluid, afebrile PLAN: s/p cytotec for augmentation. now on pitocin 6u. open to epidural currently coping well with contractions.
[2023-07-09] MEDS: Lidocaine 1% (20 ml mdv) 20 ML Vial INFILT (12:31)
--- NOTE | 2023-07-09 12:49 | OP.PCM_ITS ---
Assessment & Plan (1) (spontaneous vaginal delivery): COMMENT: LC SROM/IOL 40.6 girl [place] Maternal Data Information DAMIEN Calculator Estimated Delivery Date Method Current WG Current Estimate 07/03/23 LMP (Certain) 40w 6d Other Estimates 06/29/23 Ultrasound #1 41w 3d Final DAMIEN: 07/03/23 Final DAMIEN Source: LMP Gestational age: 40.6 Vaginal Delivery Maternal Presentation Maternal Presentation: Spontaneous Rupture of Membranes Maternal Presentation: SROM at 1200 07/08, unchanged cervical exam, cytotec given until favorable and transitioned to pitocin for augmentation. progressed to fully with meconium noted in the last hour of labor, pedi and respiratory present for delivery. Type of Induction: Pitocin and Cytotec Medical Reason for Induction: Premature Rupture of Membranes Operative Information Date of Procedure: 07/09/23 Pre-Operative Diagnosis: see problem list Post-Operative Diagnosis: Surgery / Procedure Performed: Spontaneous Vaginal Delivery Type of Anesthesia: Local with 1% Lidocaine Estimated Blood Loss: 250 Time of Delivery: 12:27 Findings Description of Procedure: Patient began pushing and delivered the head in the WILBER presentation. The head was delivered atraumatically. The anterior and posterior shoulders delivered without complication followed by the rest of the infant and the infant was placed on the maternal abdomen. Delayed cord clamping was employed for approximately 60 seconds. Cord was clamped and cut and gentle traction was applied to the cord and the placenta delivered spontaneously immediately following it was noted to be intact with three-vessel cord. The perineum and vagina were inspected and noted to have small first degree laceration, repaired with 3-0 in usual sterile fashion. EBL was 250cc. Patient and infant tolerated delivery well. Presentation: Vertex Amniotic Membrane Rupture Type: Spontaneous Time of Membrane Rupture: 1200 Amniotic Fluid Description: Clear Cord Vessel Description: 3 Vessels Cord Entanglement: None A Gender: Female (1 minute): 9 (5 minute): 9 Delayed Cord Clamping: Yes Post Vaginal Delivery Medications Given After Delivery: IV Pitocin Episiotomy Description: None Laceration: 1st degree Procedures Urinary/Genital [id number]: [id number] Vaginal Delivery [facility]
--- NOTE | 2023-07-09 13:11 | DCINST_ITS ---
Discharge Instructions Diet Discharge Diet: No restrictions Activity Discharge Activity: May Not Drive and May Shower May resume sexual activity in: 6 weeks Weight Bearing Status: Full weight bearing Dressing / Incision Call your doctor if your incision/area has: Sudden Increased Bleeding, Increased Pain/ Swelling and Foul Smelling Discharge Call your doctor if you observe: Fever of 101 or Higher, Numbness or Tingling, Change in Color, Inability to urinate, Inability to have a bowel movement, Using more than 1 pad per hour, Shortness of breath, Dizziness, Fainting spells, Chest pain, Calf discomfort and Uncontrolled pain Follow Up Care Please Follow Up With: Jie Viramontes CNM When: 6 weeks , please call office to make an appointment. Congratulations on the of your baby girl!! Test Results: Test results from this visit will be discussed in further detail at your follow- up appointment, if applicable. Discharge Plan Admission Admit Date/Time: 07/08/23 13:55 Attending Provider: Jie Viramontes Primary Care Provider: Care Physician,Destinee Primary Discharge Orders/Prescriptions Prescriptions: No Action DHA 200 mg capsule See Rx Instructions PO .COMPLEX Rx Instructions: 1 tab orally; Referrals / Follow Up: Care Physician,No Primary [Primary Care Provider] -
[2023-07-09] MEDS: Oxytocin 15 Units/NS 250ml 15 UNITS/250 ML IV.SOLN 83 UNITS IV (13:44)
[2023-07-10 03:53] VITALS: BP 99/45; PULSE 76; RESP 16
--- NOTE | 2023-07-10 08:20 | PN.OBGYN_ITS ---
Subjective Subjective Patient doing well without complaints. Tolerating PO. Ambulating and voiding without difficulty. Feeding well. Denies chest pain, shortness of breath, calf pain/swelling, fevers, chills, lightheadedness. Objective Data Objective Data Vital Signs: Vital Signs Temp Pulse Resp BP Pulse Ox O2 Del Method 98.3 F 76 16 99/45 L 96 Room Air 07/09/23 19:54 07/10/23 03:53 07/10/23 03:53 07/10/23 03:53 07/09/23 17:18 07/10/23 03:53 Oxygen Delivery Method Room Air Weight: 185 lb 6.54 oz Body Mass Index (BMI) 29.9 Intake & Output: Intake and Output for Last 24 Hours 07/08/23 07/09/23 07/10/23 23:59 23:59 23:59 Intake Total 1665.00 / 1665.00 Output Total 1900 / 1900 Balance -235.00 / -235.00 Lab / Micro Data 07/08/23 14:15 Physical Exam Const alert and no apparent distress Neck full ROM Lymph Lymphatic: no lymphadenopathy noted Chest inspection of chest normal Nipple/Areola: nipples/areola normal Resp normal respiratory effort, normal air movement and no retractions Cardio regular rate and regular rhythm GI normal to inspection, nondistended, normoactive bowel sounds Narrative: fundus firm, below u. normal lochia, no clots Extremity normal to inspection and full ROM Skin no rashes or lesions noted Psych mental status grossly normal Assessment & Plan (1) (spontaneous vaginal delivery): COMMENT: LC SROM/IOL 40.6 girl [place] PLAN: s/p PPD # 1 1. routine post delivery care 2. breast feeding- support given 3. rh positive 4. rubella immune 5. desires early d/c today.
[2023-07-10 08:30] VITALS: BP 107/58; PULSE 79; RESP 16; TEMP 36.8; O2SAT 96
[2023-07-10 13:10] VITALS: BP 108/65; PULSE 96; RESP 16; TEMP 36.8; O2SAT 98
--- NOTE | 2023-07-10 13:45 | CASEMGMT ---
Social Work Assessment Labor and Delivery Unit Patient Address:[address] [place] [address] [place] [address] Phone number: [phone] Date of Referral: 07/08/23 Time of Referral:? 1500 Referred By: Jie Viramontes Date of Intervention: ??07/10/23 Time of Intervention:? 1300 Reason for Referral:? substance abuse, father of patient Omar completed chart review and acknowledges social work consult. Sw presented to room and introduced self to mother of baby (SAÚL- Delores) and father of baby (FOB- Selwyn). Sw explained sw role during hospitalization and completed psychosocial assessment. History obtained from: medical records, MOB and FOB Household composition: Currently residing in the family home is MOB, FOGale and now baby. Parents deny any concerns with their housing at this time. Patient's parent/guardian status:? 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 No concerns at this time regarding domestic violence or intimate partner violence. [place] baby is first baby for both parents. Medical History: ?SAÚL is 22 year old female who is 1, para 0-now 1 following labor and delivery of . SAÚL received routine care during with [place]. SAÚL delivered baby on 07/09/23 via vaginal delivery at 40 weeks gestation. Baby girl, named Dom Weathers, was born weighing 7lb 2oz and her apgars were 9 and 9 at one and five minutes of life respectfully. Baby will be seen by Dr. Fuller for pediatrics. Educational Status:? Both parents graduated from high school. SAÚL also obtained an associates degree. No concerns with reading, learning or comprehension. Financial Status:Both parents are gainfully employed outside of the home. 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 SAÚL states that she is able to take up to 12 weeks off of work. Supplies:??Paretns state that they have obtained all necessary baby supplies, including: car seat, safe sleep spaces, clothes, diapers and wipes. Childcare/Caregiver(s):? SAÚL will be the primary caregiver to baby while she is on maternity leave, along with FOB when he is not working. When both parents have returned to work maternal and paternal grandma's will both be responsible for childcare. Transportation:?? Both parents have their drivers license and reliable means of transportation. No transportation barriers. Programs/Agencies Involved: ??Parents deny linkage to any community resources at this time. Children Services/Legal Issues:??No history of children services involvement. No issues or concerns warranting referral to be made at this time. Behavioral Health Issues: ??Mental Health History:?FOB and MOB deny mental health diagnoses. ?? Substance Use History: Parents deny substance use. MOB denies use prior to and during . ?? Family History: MOB states that her father is an alcoholic. MOB states that he is not going to be a primary caregiver to baby. ? Drug Screens: No urine screens observed during chart review. ?? Family/Social Stressors:? Parents deny stressors or concerns at this time. Support Systems: Parents report that both sets of grandparents are supportive. Depression/Shaken Baby/Safe Sleeping:? Sw educated parents on signs and symptoms of baby blues and depression and anxiety. Parents express understanding. Sw provided parents with literature that provides education and appropriate coping skills for parents to utilize if MOB would struggle with symptoms. Sw educated parents with shaken baby prevention and ABCs of safe sleep. Parents express understanding. ASSESSMENT:?MOB and baby admitted following labor and delivery. MOB and FOB at bedside and active in psychosocial assessment. Parents reserved and not forthcoming with information during assessment. Parents answered questions mostly with yes or no answers. Parents eager for discharge, and had lots of visitors earlier in morning that pushed back discharge. Parents have adequate supports in place and all necessary baby supplies. PLAN:? MOB and baby to be discharged when medically ready. ?No other services requested or indicated. Sterling Chavez, GLOBAL MOBILITY SPECIALIST, SOLAR PHOTOVOLTAIC SYSTEMS ENGINEER
== END 2023-07-10 14:35 | disposition home or self-care (01) | DRG 807 ==
LOC: WPOUT 13:56 → WP 13:56
PROVIDERS: Admitting Provider Registered Nurse; Referring Provider Registered Nurse; Visit Provider Registered Nurse
DX: O42.92 Full-term premature rupture of membranes, unspecified as to length of time between rupture and onset of labor (principal); Z37.0 Single live birth; O70.0 First degree perineal laceration during delivery; Z3A.40 40 weeks gestation of pregnancy
CPT/HCPCS: 59025; 59050; 84112; 85025; 86780; 86850; 86900; 86901; 99221; J7120; G0378

== ENCOUNTER → 2024-11-01 | Outpatient (CLI) | payer OTHER, SELFPAY ==
[2024-11-05 21:07] LABS: Chlamydia By Nucleic Acid AMP Negative (Negative); Gonococcus By Nucleic Acid AMP Negative (Negative)
== END | disposition home or self-care (01) ==
LOC: LABSPEC 14:26
PROVIDERS: Referring Provider Obstetrics & Gynecology; Visit Provider Obstetrics & Gynecology
DX: O09.90 Supervision of high risk pregnancy, unspecified, unspecified trimester (principal); Z3A.00 Weeks of gestation of pregnancy not specified
CPT/HCPCS: 87086; 87088; 87491; 87591; 88175; G0145

== ENCOUNTER → 2024-12-03 | Outpatient (CLI) | payer OTHER, SELFPAY ==
[2024-12-03 10:41] LABS: Absolute Lymphocyte Count 2.33 X10^3/uL (0.83-4.51); Absolute Neutrophil Count 6.9 X10^3/uL (2.0-7.7); Basophil# 0.04 X10^3/uL; Basophil% 0.4 % (0-1); Eosinophil# 0.07 X10^3/uL; Eosinophils% 0.7 % (0-5); Hematocrit 37.6 % (37-47); Hemoglobin 12.8 g/dL (12.0-15.0); Lymphocyte # 2.33 X10^3/ul (0.83-4.51); Lymphocyte % 23.2 % (19-41); Mean Corpuscular Hgb 28.6 pg (27.0-32.0); Mean Corpuscular Volume 84.1 fL (81-99); Mean Platelet Vol. 9.1 fl (6.2-12.0); Monocyte# 0.65 X10^3/uL; Monocyte% 6.5 % (0-10); NRBC Flagged by Analyzer 0 % (0-5); Neutrophil # 6.89 X10^3/uL (2.7-7.7); Neutrophil % 68.7 % (47-70); Platelet Count 311 K/mm3 (150-450); RBC Distribution Width CV 12.8 % (11.6-14.6); Red Blood Count 4.47 M/mm3 (4.2-5.4)
[2024-12-03 11:26] LABS: HIV Nonreactive (Nonreactive); Hepatitis B Surface Antigen Nonreactive (Nonreactive); Hepatitis C Antibody Nonreactive (Nonreactive); Syphilis Antibodies Nonreactive (Nonreactive)
[2024-12-03 11:43] LABS: Rubella IgG REAC (Nonreactive)
== END | disposition home or self-care (01) ==
LOC: BWCLAB 10:24
PROVIDERS: Visit Provider Obstetrics & Gynecology
DX: O09.90 Supervision of high risk pregnancy, unspecified, unspecified trimester (principal); Z3A.00 Weeks of gestation of pregnancy not specified
CPT/HCPCS: 36415; 85025; 86703; 86762; 86780; 86803; 86850; 86900; 86901; 87340

== ENCOUNTER → 2025-03-18 | Outpatient (CLI) | payer OTHER, SELFPAY ==
[2025-03-18 12:16] LABS: Hematocrit 35.4 % (37-47); Hemoglobin 12.2 g/dL (12.0-15.0); Immature Granulocytes Count 0.070 X10^3/uL (0.0-0.0); Mean Corp Hgb Conc 34.5 g/dL (32-36); Mean Corpuscular Volume 87.0 fL (81-99); Mean Platelet Vol. 9.9 fl (6.2-12.0); NRBC Flagged by Analyzer 0 % (0-5); Platelet Count 298 K/mm3 (150-450); RBC Distribution Width CV 12.3 % (11.6-14.6); RBC Distribution Width SD 39.4 fl (35.1-43.9); Red Blood Count 4.07 M/mm3 (4.2-5.4); White Blood Count 11.2 K/mm3 (4.4-11.0)
[2025-03-18 13:06] LABS: Glucose Challenge Gest 1H 50g 95 mg/dL (70-140); HIV Nonreactive (Nonreactive); Syphilis Antibodies Nonreactive (Nonreactive)
== END | disposition home or self-care (01) ==
PROVIDERS: Visit Provider Obstetrics & Gynecology
DX: Z13.1 Encounter for screening for diabetes mellitus (principal); O09.91 Supervision of high risk pregnancy, unspecified, first trimester; Z3A.00 Weeks of gestation of pregnancy not specified
CPT/HCPCS: 36415; 82950; 85025; 86703; 86780

== ENCOUNTER → 2025-05-20 | Outpatient (CLI) | payer OTHER, SELFPAY | END | disposition home or self-care (01) | LOC: LABSPEC 16:12 | PROVIDERS: Visit Provider Student in an Organized Health Care Education/Training Program | DX: O09.91 Supervision of high risk pregnancy, unspecified, first trimester (principal); Z3A.00 Weeks of gestation of pregnancy not specified | CPT/HCPCS: 87081 ==